=== PATIENT | female | born 1955 | race Caucasian/White ===

== ENCOUNTER → 2017-09-20 | Day surgery (SDC) | payer OTHER ==
[~2017-09-20] VITALS: Ht 167.6 cm; Wt 75.0 kg
[~2017-09-20] MED LIST: ASCA500 PO; ASPI81TA28 PO; BIOT1TAB7 PO; BUPR200T2 PO; CHOL100010 PO; CLON0.5T3 PO; CYAN10005 PO; LEVO112T4 PO; MULT-1018 PO; NORT50CA PO; PROBCAP8 PO; PROP1TAB PO; SERT-234 PO; SUMA100T16 PO; [UNRECOGNIZED DRUG - CODE] PO
[2017-09-20 09:05] VITALS: BP 126/74; PULSE 74; TEMP 36.7; O2SAT 100; Ht 167.6 cm; Wt 75.0 kg
[2017-09-20 12:31] VITALS: BP 110/61; PULSE 68; TEMP 36.8; O2SAT 99
[2017-09-20 12:52] VITALS: BP 111/74; PULSE 70; O2SAT 98
--- NOTE | 2017-09-20 13:04 | Discharge Instructions ---
Discharge Instructions Procedure Procedure Date: Sep 20, 2017. Reason for visit: W/Opening Pressure, Lymes Disease. Discharge Discharge Date: Sep 20, 2017. Discharge Diagnosis: Lyme disease Instructions Activity Recommendations: No limitations Return to School/Work: no limitations Recommended Home Diet: Resume Previous Diet Provider Instructions: Fluoroscopic guided lumbar puncture was attempted and unsuccessful. There were no immediate complications ACTIVITY RECOMMENDATIONS: * Rest today. * Resume regular activity in one day. MEDICATIONS: * May take Tylenol or Ibuprofen as needed for pain. DIET: * Resume previous diet. SPECIAL CARE INSTRUCTIONS: Call your doctor if: * Temperature above 101 degrees F. * Pain not relieved by pain medicine ordered. * Increased drainage or redness from incision. * Notify your doctor with any questions or concerns. Call your doctor or go to the nearest Emergency Department if you experience: * Increased chest pain or shortness of breath. FOLLOW UP VISIT: Follow-up with Referring Physician as scheduled. Allergies Coded Allergies: Prochlorperazine (Verified Allergy, Intermediate, "pulls on side of neck muscle", 09/20/17) Doxycycline (Verified Allergy, Mild, flu like symptoms- nausea, muscle aches, 09/20/17) Uncoded Allergies: SULFA (Allergy, Mild, Flu like symptoms, 09/20/17) [place] Recommendations: Call your doctor if: * Temperature above 101 degrees * Pain not relieved by pain medicine ordered * There is increased drainage or redness from any incision * You have any unanswered questions or concerns. Your Doctors Instructions noted above were prepared by provider Nick Dela Cruz. Patient Signature Section: Patient Instructions Signature Page Misti Hernandez Patient (or Guardian) Signature/Date: I have read and understand the instructions given to me by my caregivers. Caregiver/RN/Doctor Signature/Date: The above-named patient and/or guardian has received patient instructions on this date. + Original Patient Signature Page (only) stays with chart. Please make copy for patient.
--- NOTE | 2017-09-20 13:11 | DIAGNOSTIC IMAGING REPORT ---
FLUOROSCOPIC GUIDED LUMBAR PUNCTURE CLINICAL HISTORY: Lyme disease. PROCEDURE: The risks, benefits, and alternatives to the procedure is discussed with the patient who voiced understanding. Written informed consent was obtained. The patient was placed prone on the fluoroscopy table. The lower back was prepped and draped in the usual sterile fashion. 1% lidocaine was used for local anesthesia. Fluoroscopic lumbar puncture was attempted at the L3-L4 and L4-L5 levels using a 22-gauge spinal needle. No cerebrospinal fluid was removed. The patient tolerated the procedure well. There were no immediate complications. The patient left the department in satisfactory condition. Fluoroscopy time: 2.6 minutes. IMPRESSION: Fluoroscopic guided lumbar puncture was attempted at L3-L4 and L4-L5. The procedure was unsuccessful, with no cerebrospinal fluid removed. Electronically signed by: Nick Dela Cruz M.D. 09/20/2017 1:10 PM Dictated Date/Time: 09/20/2017 1:08 PM
== END | disposition home or self-care (01) ==
LOC: C.ACU 08:10
PROVIDERS: ATTEND Internal Medicine Infectious Disease
DX: A69.20 Lyme disease, unspecified (principal)